=== PATIENT | female | born 1970 | race Two or more races ===

== ENCOUNTER 2017-06-10 16:05 | Emergency (ER) | payer OTHER ==
[2017-06-10 16:12] VITALS: BP 134/82; PULSE 89; TEMP 98.2; BMI 25.4
--- NOTE | 2017-06-10 16:17 | PDOC ---
Rapid Medical Evaluation Time Seen by Provider: 06/10/17 16:11 Medical Evaluation: Allergies Allergy/AdvReac Type Severity Reaction Status Date / Time codeine Allergy Intermediate Itching Verified 06/10/17 16:09 06/10/17 16:11 Pt c/o: left groin pain, no mass Pt on brief exam: no erythema, no mass, no deformity Pt ordered for: none Pt to proceed to the ED Discharge Disposition - Diagnosis Groin pain - Referrals - Patient Instructions - Post Discharge Activity
[2017-06-10] MEDS ORDERED: IBUPROFEN 400 MG TABLET (FP) PO ONE ×2 (16:49→16:50)
--- NOTE | 2017-06-10 16:55 | PDOC ---
History of Present Illness - General Chief Complaint: Pain Stated Complaint: THIGH PAIN Time Seen by Provider: 06/10/17 16:11 History Source: Patient - History of Present Illness Timing/Duration: reports: other (yesterday) Past History - Past Medical History Allergies/Adverse Reactions: Allergies Allergy/AdvReac Type Severity Reaction Status Date / Time codeine Allergy Intermediate Itching Verified 06/10/17 16:09 Home Medications: Ambulatory Orders Cholecalciferol (Vitamin D3) [Vitamin D3] 5,000 unit PO WEEKLY 05/28/17 Levothyroxine [Synthroid -] 125 mcg PO DAILY 05/28/17 Acetaminophen W/ Codeine #3 [Tylenol # 3 -] 1 tab PO Q6H #20 tablet MDD 6 Amoxicillin/Potassium Clav [Augmentin 875-125 Tablet] 1 each PO BID #14 tablet 06/10/17 Ibuprofen [Motrin -] 2 tab PO Q6H #30 tablet 06/10/17 Anemia: No Asthma: No Cancer: Yes (thyroid cancer) Cardiac Disorders: No CVA: No COPD: No CHF: No Dementia: No Diabetes: No GI Disorders: No Disorders: No HTN: No Hypercholesterolemia: Yes Liver Disease: No Seizures: No Thyroid Disease: Yes - Suicide/Smoking/Psychosocial Hx Smoking History: Never smoked Hx Alcohol Use: No Drug/Substance Use Hx: No Substance Use Type: None Hx Substance Use Treatment: No Review of Systems - Review of Systems Constitutional: No: Chills, Fever ABD/GI: No: Nausea, Vomiting, Abdominal cramping : No: Dysuria, Discharge *Physical Exam - Vital Signs Last Vital Signs Temp Pulse Resp BP Pulse Ox 98.2 F 89 19 134/82 98 06/10/17 16:09 06/10/17 16:09 06/10/17 16:09 06/10/17 16:09 06/10/17 16:09 - Physical Exam General Appearance: Yes: Appropriately Dressed. No: Apparent Distress HEENT: positive: Normal Voice Neck: positive: Supple Respiratory/Chest: negative: Respiratory Distress Female Pelvic Exam: positive: Bartholin mass (minimal swelling w/ ttp over L bartholins, no induration/fluctuance or erythema) Gastrointestinal/Abdominal: positive: Soft, Other (well emilia surgical incisions) . negative: Tender Integumentary: positive: Dry, Warm Neurologic: positive: Fully Oriented, Alert, Normal Mood/Affect Medical Decision Making - Medical Decision Making 06/10/17 16:49 46-year-old female status post right ovarian cystectomy last week by Dr. Ontiveros at [facility], presents with left labial pain and swelling since yesterday. States she feels "a ball" to site. No vaginal discharge, dysuria, abdominal pain, nausea, vomiting, fever or chills. 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 La funcin de la glndula de Bartholin es mantener la vagina hmeda. Algunas veces esta glndula puede inflamarse o infectarse. No hay evidencia de que tenga pus para drenar hoy ya que parece que nelson condicin es temprana. [place] los medicamentos recetados y realice un nicolette de asiento en casa, que se realiza simplemente llenando la parte superior con varias pulgadas de agua suficiente para cubrir nelson vulva y sentarse suavemente. Saurabh esto varias veces al da angel 3 o 4 moncada. El quiste puede estallar y drenar por s mismo. Por favor saurabh un seguimiento con nelson gineclogo en la germania ya programada el viernes. Si los sntomas empeoran antes de eso, regrese a la korin de emergencias inmediatamente - Post Discharge Activity
== END 2017-06-10 17:04 | disposition home or self-care (01) ==
LOC: JERFT 16:05
DX: N75.0 Cyst of Bartholin's gland (principal); E78.00 Pure hypercholesterolemia, unspecified; Z85.850 Personal history of malignant neoplasm of thyroid
CPT/HCPCS: 99281-25

== ENCOUNTER 2022-07-02 05:12 | Day surgery (SDC) | payer OTHER ==
[2022-07-01 09:52] VITALS: BMI 24.7
[2022-07-02 12:17] VITALS: TEMP 98
[2022-07-02 12:42] VITALS: BP 105/87; RESP 18
[2022-07-02 12:43] VITALS: PULSE 65
== END 2022-07-02 12:52 | disposition home or self-care (01) ==
LOC: JASU-ENDO 05:12
PROVIDERS: ATTEND Student in an Organized Health Care Education/Training Program
PROC: 0DBL8ZX Excision of Transverse Colon, Via Natural or Artificial Opening Endoscopic, Diagnostic (ICD-10-PCS; 2022-07-02)
PROC: 0DBM8ZX Excision of Descending Colon, Via Natural or Artificial Opening Endoscopic, Diagnostic (ICD-10-PCS; 2022-07-02)
PROC: 0DBH8ZX Excision of Cecum, Via Natural or Artificial Opening Endoscopic, Diagnostic (ICD-10-PCS; principal; 2022-07-02 10:30)
DX: Z12.11 Encounter for screening for malignant neoplasm of colon (principal); D12.3 Benign neoplasm of transverse colon; D12.4 Benign neoplasm of descending colon
CPT/HCPCS: 82962; 88305-TC

== ENCOUNTER 2023-01-10 04:37 | Day surgery (SDC) | payer OTHER ==
[2023-01-08 09:47] VITALS: BMI 23.7
[2023-01-10] MEDS ORDERED: cefOXitin SODIUM 2 GM VIAL (RESTRICTED TO ID) IVPB ONE ×2 (08:23→08:25)
[2023-01-10] MEDS ORDERED: BUPIVACAINE HCL/PF 0.5% (5MG/ML) 10 ML VIAL IJ ONE (08:34)
[2023-01-10] MEDS ORDERED: BUPIVACAINE HCL/PF 0.25% (2.5MG/ML) 10 ML VIAL ONE (09:59)
[2023-01-10] MEDS ORDERED: BUPIVACAINE HCL/PF 0.5% (5MG/ML) 10 ML VIAL ONE (09:59)
[2023-01-10] MEDS ORDERED: FENTANYL CITRATE/PF 50 MCG/ML VIAL ONE ×2 (10:14→10:32)
[2023-01-10] MEDS ORDERED: oxyCODONE HCL 5 MG TABLET PO PRN ×2 (10:20)
[2023-01-10] MEDS ORDERED: ONDANSETRON 4 MG/2 ML VIAL IVPUSH PRN (10:20)
[2023-01-10] MEDS ORDERED: LACTATED RINGERS SOLUTION 1,000 ML IV SCH (10:30)
[2023-01-10] MEDS ORDERED: ACETAMINOPHEN INJECTION 100 ML IVPB ONE (11:49)
[2023-01-10] MEDS ORDERED: traMADol HCL 50 MG TABLET PO PRN (12:33)
[2023-01-10] MEDS ORDERED: ACETAMINOPHEN 1000 MG/100 ML BAG IVPB ONE (12:45)
[2023-01-10 15:35] VITALS: RESP 20
[2023-01-10 15:55] VITALS: BP 100/60
[2023-01-10 16:05] VITALS: PULSE 63; TEMP 97.4
== END 2023-01-10 15:30 | disposition home or self-care (01) ==
LOC: JASU-SURG 04:37
PROVIDERS: ATTEND Surgery
PROC: 0DTJ4ZZ Resection of Appendix, Percutaneous Endoscopic Approach (ICD-10-PCS; principal; 2023-01-10 08:00)
DX: K38.8 Other specified diseases of appendix (principal)
CPT/HCPCS: 82962; 88304-TC; 94760

== ENCOUNTER 2024-05-05 15:25 | Emergency (ER) | payer OTHER ==
[2024-05-05 15:45] VITALS: BP 120/72; PULSE 72; RESP 17; TEMP 98.1; BMI 25.3
[2024-05-05] MEDS ORDERED: IBUPROFEN 400 MG TABLET (FP) PO ONE (17:00)
[2024-05-05] MEDS ORDERED: ACETAMINOPHEN 500 MG TABLET (FP) ONE (17:01)
[2024-05-05] MEDS: IBUPROFEN 400 MG TABLET (FP) PO ONE (17:04)
[2024-05-05] MEDS: ACETAMINOPHEN 500 MG TABLET (FP) PO ONE (17:04)
[2024-05-05 17:24] LABS: BASO % 0.7 % (0-2.0); EOS % 1.6 % (0-4.5); HEMATOCRIT 38.6 % (32.4-45.2); LYMPH % 26.2 % (8-40); MCH 29.9 pg (25.7-33.7); MCHC 33.7 g/dl (32.0-36.0); MEAN CELL VOLUME 88.6 fl (80-96); MEAN PLT VOLUME 7.3 fl (7.5-11.1); NEUT % 65.5 % (42.8-82.8); PLATELET COUNT 237 10^3/uL (134-434); RBC 4.36 M/mm3 (3.60-5.2); RDW 13.8 % (11.6-15.6); WHITE BLOOD COUNT 7.3 K/mm3 (4.0-10.0)
[2024-05-05 17:45] LABS: POTASSIUM 4.1 mmol/L (3.5-5.1)
[2024-05-05 17:47] LABS: BLOOD UREA NITROGEN 21.9 mg/dL (7-18); CALCIUM 8.6 mg/dL (8.5-10.1)
[2024-05-05 17:50] LABS: CREATININE 0.8 mg/dL (0.55-1.3)
[2024-05-05 17:53] LABS: BILIRUBIN,TOTAL 0.6 mg/dL (0.2-1); TOT PROT 7.8 g/dl (6.4-8.2)
== END 2024-05-05 18:56 | disposition home or self-care (01) ==
LOC: JERFT 15:25 → JER 15:25 → JERFT 18:56
DX: M54.6 Pain in thoracic spine (principal); M54.50 Low back pain, unspecified; M25.512 Pain in left shoulder; M25.522 Pain in left elbow; R07.89 Other chest pain; M79.671 Pain in right foot
CPT/HCPCS: 36415; 71046-TC-FY; 80053; 82550; 82553; 84484; 85025; 93005; 93010; 99285-25